=== PATIENT | male | born 1960 | race Hispanic/Latino ===

== ENCOUNTER 2022-09-27 10:20 | Day surgery (SDC) | payer BC ==
[~2022-09-27] VITALS: Ht 180.3 cm; Wt 97.1 kg
[2022-09-27] VITALS (7 sets, daily range): BP systolic 94–124; BP diastolic 62–85
[~2022-09-27 10:20] MED LIST: GLIM4TAB PO; LISI1TAB51 PO; METF-446 PO; METOPROLOL PO
[2022-09-27] MEDS ORDERED: 0.9%NACL 1000ML 1,000 ML IV ONE ×2 (11:27→12:06)
[2022-09-27] MEDS ORDERED: LOSA1TAB37 PO (12:24)
[2022-09-27] MEDS ORDERED: METO-391 PO (12:26)
[2022-09-27] MEDS ORDERED: VITA100049 PO (12:26)
[2022-09-27] MEDS ORDERED: SITA25TA5 PO (12:26)
[2022-09-27] MEDS ORDERED: PROPOFOL 10 MG/ML 20ML VIAL IV ONE (13:10)
[2022-09-27] MEDS ORDERED: LIDOCAINE PF 100MG/5ML (2%) SYRINGE 5ML ONE (13:10)
== END 2022-09-27 14:10 | disposition home or self-care (01) ==
LOC: DAH 10:20 → ENDO 10:20
PROVIDERS: ATTEND Internal Medicine Gastroenterology
DX: Z12.11 Encounter for screening for malignant neoplasm of colon (principal); Z20.822 Contact with and (suspected) exposure to COVID-19; R10.10 Upper abdominal pain, unspecified; K64.0 First degree hemorrhoids; K57.30 Diverticulosis of large intestine without perforation or abscess without bleeding; R19.7 Diarrhea, unspecified; K21.00 Gastro-esophageal reflux disease with esophagitis, without bleeding; K29.00 Acute gastritis without bleeding; I10 Essential (primary) hypertension; K76.0 Fatty (change of) liver, not elsewhere classified; E78.5 Hyperlipidemia, unspecified; E11.9 Type 2 diabetes mellitus without complications; Z83.71 Family history of colonic polyps; Z87.891 Personal history of nicotine dependence; Z72.89 Other problems related to lifestyle; Z82.49 Family history of ischemic heart disease and other diseases of the circulatory system; Z83.3 Family history of diabetes mellitus; Z82.3 Family history of stroke; Z79.84 Long term (current) use of oral hypoglycemic drugs; Z79.899 Other long term (current) drug therapy
CPT/HCPCS: 45378; 43239; 87635; 82948; J7030 ×2; J2001; J2704; A4620; A4215; A4223; A4222; A4221; A4663; A4606

== ENCOUNTER → 2024-04-10 | Outpatient (CLI) | payer OTHER ==
[~2024-04-10] MED LIST changes: -GLIM4TAB PO; -LISI1TAB51 PO; +LOSA1TAB37 PO; +METO-391 PO; -METOPROLOL PO; +SITA25TA5 PO; +VITA100059 PO
--- NOTE | 2024-04-10 15:20 | HMCIMG ---
CT HEART SAVER PROMOTIONAL HISTORY: Calcium scoring COMPARISON: None TECHNIQUE: Computed tomography of the heart was performed with ECG gating and suspended respiration. Postprocessing was performed on a computer workstation to obtain diastolic phase images, determine calcium score and provide a quantitative assessment of extent of disease. This CT included only the heart. HeartSaver score is 446.0. Please see cardiac calcium score report. The available CT chest images show no acute finding. CT was performed with one or more following dose reduction techniques: automated exposure control, adjustment of the mA and kv according to patient's size, or use of a iterative reconstruction technique.
== END | disposition home or self-care (01) ==
LOC: RAH 14:02
PROVIDERS: ATTEND Nurse Practitioner Family
DX: Z13.6 Encounter for screening for cardiovascular disorders (principal)
CPT/HCPCS: 75571